=== PATIENT | male | born 1985 | race African-American/Black ===

== ENCOUNTER 2018-01-30 19:54 | Emergency (ER) | payer BC, MEDICAID, OTHER ==
[2018-01-30] MEDS ORDERED: Proparacaine 0.5% Ophth Soln 15 ML Bottle EYERT ONE (20:17)
[2018-01-30] MEDS ORDERED: Erythromycin Base 0.5% Ophth Oint 1 GM Tube EYERT ONE (20:59)
--- NOTE | 2018-01-30 21:05 | EDM.PDOC ---
ED HPI GENERAL MEDICAL PROBLEM - General Chief Complaint: Eye Problems Stated Complaint: DEBRIS IN RIGHT EYE Time Seen by Provider: 01/30/18 20:23 Source of Information: Reports: Patient History Limitations: Reports: No Limitations - History of Present Illness INITIAL COMMENTS - FREE TEXT/NARRATIVE: HISTORY AND PHYSICAL: History of present illness: Patient is a 32-year-old male who presents to the emergency room with complaints of right eye irritation. He states he was walking to his vehicle when he felt something hit his eye. He reports that he did proceed inside and irrigated the eye thoroughly with an eye wash kit. He still has irritation and is concerned he has a foreign body still in the eye. He denies any change in his vision or drainage. Does not wear contact lenses or glasses. Visual Acuity 20/50 Right, 20/30 Left, 20/20 Both Eyes. Review of systems: As per history of present illness and below otherwise all systems reviewed and negative. Past medical history: As per history of present illness and as reviewed below otherwise noncontributory. Surgical history: As per history of present illness and as reviewed below otherwise noncontributory. Social history: No reported history of drug or alcohol abuse. Family history: As per history of present illness and as reviewed below otherwise noncontributory. Physical exam: General: Well developed and well-nourished 32-year-old -[place] male. Alert and oriented. Nontoxic appearing and in no acute distress. HEENT: Atraumatic, normocephalic, pupils equal and reactive bilaterally, negative for conjunctival pallor or scleral icterus, right scleral injection with out foreign body noted, mucous membranes moist, throat clear, neck supple, nontender, trachea midline. No drooling or trismus noted. No meningeal signs Lungs: Clear to auscultation, breath sounds equal bilaterally, chest nontender. Heart: S1S2, regular rate and rhythm without overt murmur Abdomen: Soft, nondistended, nontender. Genitourinary: Deferred. Rectal: Deferred. Skin: Intact, warm, dry. No lesions or rashes noted. Extremities: Atraumatic, negative for cords or calf pain. Neurovascular unremarkable. Neuro: Awake, alert, oriented. Cranial nerves II through XII unremarkable. Cerebellum unremarkable. Motor and sensory unremarkable throughout. Exam nonfocal. Notes: An eye exam was completed, corneal abrasion noted at the 4 o'clock position. No foreign bodies noted. We'll place on erythromycin ointment. 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 He voices understanding and is agreeable to plan of care. Denies any further questions or concerns at this time. Diagnostics: Visual acuity, eye exam Therapeutics: Proparicane, erythromycin Prescription: Erythromycin Impression: Corneal Abrasion, right Plan: 1. Use the Erythromycin ointment 4 x daily x 7 days in the right eye 2. Follow up with ophthalmology at [facility] in the next 1-2 days. Return to the ED as needed and as discussed. Definitive disposition and diagnosis as appropriate pending reevaluation and review of above. Onset: Today Right Eye Pain Score (Numeric/FACES): 9 - Related Data Allergies Allergy/AdvReac Type Severity Reaction Status Date / Time No Known Allergies Allergy Verified 01/30/18 20:16 Home Meds: Home Meds Erythromycin Base [Erythromycin 0.5% Ophth Oint] 1 applic OP QID 7 Days #1 tube 01/30/18 [Rx] Eszopiclone 1 tab PO ASDIRECTED PRN 01/30/18 [History] Past Medical History - Past Health History Medical/Surgical History: Denies Medical/Surgical History Social & Family History - Tobacco Use Smoking Status *Q: Former Smoker Used Tobacco, but Quit: Yes Month/Year Tobacco Last Used: 2013 - Caffeine Use Caffeine Use: Reports: Soda - Recreational Drug Use Recreational Drug Use: No ED ROS GENERAL - Review of Systems Review Of Systems: ROS reveals no pertinent complaints other than HPI. ED EXAM GENERAL W FULL EYE - Physical Exam Exam: See Below (See dictation) Course - Vital Signs Last Recorded V/S: Last Vital Signs Temp 98.0 F 01/30/18 20:12 Pulse 71 01/30/18 20:12 Resp 18 01/30/18 20:12 BP 121/72 01/30/18 20:12 Pulse Ox 100 01/30/18 20:12 - Orders/Labs/Meds Meds: Medications Discontinued Medications Generic Name Dose Route Start Last Admin Trade Name Freq PRN Reason Stop Dose Admin Erythromycin 1 gm 01/30/18 20:59 Erythromycin 0.5% Ophth Oint EYERT 01/30/18 21:00 ONETIME ONE Proparacaine HCl 1 ml 01/30/18 20:17 Proparacaine 0.5% Ophth Soln EYERT 01/30/18 20:18 ONETIME ONE Departure - Departure Time of Disposition: 21:05 Disposition: Home, Self-Care 01 Clinical Impression: Corneal abrasion Qualifiers: Encounter type: initial encounter Laterality: right Qualified Code(s): S05.01XA - Injury of conjunctiva and corneal abrasion without foreign body, right eye, initial encounter - Discharge Information Prescriptions: Erythromycin Base [Erythromycin 0.5% Ophth Oint] 1 applic OP QID 7 Days #1 tube Instructions: Corneal Abrasion, [id number] Referrals: PCP,None [Primary Care Provider] - Forms: ED Department Discharge Additional Instructions: The following information is given to patients seen in the emergency department who are being discharged to home. This information is to outline your options for follow-up care. We provide all patients seen in our emergency department with a follow-up referral. The need for follow-up, as well as the timing and circumstances, are variable depending upon the specifics of your emergency department visit. If you don't have a primary care physician on staff, we will provide you with a referral. We always advise you to contact your personal physician following an emergency department visit to inform them of the circumstance of the visit and for follow-up with them and/or the need for any referrals to a consulting specialist. The emergency department will also refer you to a specialist when appropriate. This referral assures that you have the opportunity for follow-up care with a specialist. All of these measure are taken in an effort to provide you with optimal care, which includes your follow-up. Under all circumstances we always encourage you to contact your private physician who remains a resource for coordinating your care. When calling for follow-up care, please make the office aware that this follow-up is from your recent emergency room visit. If for any reason you are refused follow-up, please contact the [facility] Emergency Department at and asked to speak to the emergency department charge nurse. [facility] [address] [place] [id number] [facility]: [facility] [address] [place] [address] 1. Use the Erythromycin ointment 4 x daily x 7 days in the right eye 2. Follow up with ophthalmology at [facility] in the next 1-2 days. Return to the ED as needed and as discussed.
== END 2018-01-30 21:39 | disposition home or self-care (01) ==
LOC: MW.ED 19:54
DX: S05.01XA Injury of conjunctiva and corneal abrasion without foreign body, right eye, initial encounter (principal); X58.XXXA Exposure to other specified factors, initial encounter
CPT/HCPCS: 99283; A9270